=== PATIENT | male | born 1965 | race Asian ===

== ENCOUNTER 2024-06-24 18:47 | Inpatient (IN) | payer OTHER ==
[~2024-06-24] VITALS: Ht 162.6 cm; Wt 78.0 kg
[2024-06-24] MEDS ORDERED: GLIP5TAB15 PO (18:56)
[2024-06-24] MEDS ORDERED: ROSU10TA72 PO (18:56)
[2024-06-24] MEDS ORDERED: SEMA14TA2 PO (18:56)
[2024-06-24] MEDS ORDERED: ERTU15TA PO (18:56)
[2024-06-24] MEDS ORDERED: FENO54TA7 PO (18:56)
[2024-06-24] MEDS ORDERED: ALLO300T2 PO (18:56)
[2024-06-24] MEDS ORDERED: METF-1211 PO (18:56)
[2024-06-24 19:09] LABS: BASOPHILS % (AUTO) 0.7 % (0.0-2.0); EOSINOPHILS % (AUTO) 1.1 % (1.0-6.0); HEMATOCRIT 49.2 % (41-53); HEMOGLOBIN 16.6 g/dL (13.5-17.5); LYMPHOCYTES # (AUTO) 2.9 K/uL (1.0-4.8); LYMPHOCYTES % (AUTO) 30.1 % (22.0-44.0); MEAN CORPUSCULAR HEMOGLOBIN 30.9 pg (26.0-34.0); MEAN CORPUSCULAR HGB CONC 33.8 G/dL (31.0-37.0); MEAN CORPUSCULAR VOLUME 91 fL (80-100); MONOCYTES # (AUTO) 0.7 K/uL (0.1-1.0); MONOCYTES % (AUTO) 7.3 % (2.0-9.0); NEUTROPHILS # (AUTO) 5.8 K/uL (1.8-7.7); NEUTROPHILS % (AUTO) 60.8 % (40.0-70.0); PLATELET COUNT (AUTO) 203 K/uL (150-450); RED BLOOD CELL COUNT(AUTO) 5.38 MIL/uL (4.50-5.90); RED CELL DISTRIBUTION WIDTH 12.8 % (11.5-14.5); WHITE BLOOD COUNT (AUTO) 9.6 K/uL (4.5-11.0)
[2024-06-24 19:15] LABS: CALCIUM, TOTAL 8.7 mg/dL (8.8-10.5); CREATININE 2.01 mg/dL (0.60-1.30); POTASSIUM 4.1 mmol/L (3.5-5.1)
[2024-06-24 19:24] LABS: TROPONIN I-HIGH SENSITIVITY 55 ng/L (<76)
[2024-06-24] MEDS ORDERED: ASPIRIN 81 MG CHEWABLE TABLET PO ONE (22:30)
[2024-06-24] MEDS: ASPIRIN 325 MG TABLET PO ONE (22:38)
[2024-06-24] MEDS: NITROGLYCERIN 2% (1 GM=INCH) OINTMENT PACKET TP ONE (22:38)
[2024-06-24] MEDS: SODIUM CHLORIDE 0.9% 1,000 ML IV ONE (22:38)
[2024-06-24 23:24] LABS: TROPONIN I-HIGH SENSITIVITY 338 ng/L (<76)
[2024-06-24] MEDS ORDERED: ACETAMINOPHEN 325 MG TABLET PO PRN (23:30)
[2024-06-24] MEDS: ATORVASTATIN CALCIUM 40 MG TABLET PO ONE (23:30)
[2024-06-24] MEDS ORDERED: HEPARIN SODIUM,PORCINE 5,000 UNITS/ML VIAL IVP ONE (23:30)
[2024-06-24] MEDS ORDERED: HEPARIN SODIUM,PORCINE 5,000 UNITS/ML VIAL IVP PRN ×2 (23:30)
[2024-06-24] MEDS: CARVEDILOL 3.125 MG TABLET PO SCH (23:30)
[2024-06-24] MEDS ORDERED: ONDANSETRON HCL 4 MG/2 ML VIAL IVP PRN (23:30)
[2024-06-25] VITALS (14 sets, daily range): BP systolic 122–190; BP diastolic 75–103; PULSE 58–92; RESP 17–20; TEMP 97.6–98.2; O2SAT 98–99
[2024-06-25] MEDS ORDERED: HEPARIN SODIUM,PORCINE 5,000 UNITS/ML VIAL SQ SCH
[2024-06-25 00:43] LABS: PROTHROMBIN TIME 9.6 SEC (9.4-11.6)
[2024-06-25] MEDS: HEPARIN SODIUM,PORCINE 5,000 UNITS/ML VIAL IVP ONE (02:45)
[2024-06-25] MEDS: HEPARIN SODIUM 25000 UNITS/D5W 250 ML IV PRN (02:50)
[2024-06-25 05:18] LABS: BASOPHILS % (AUTO) 0.6 % (0.0-2.0); EOSINOPHILS % (AUTO) 1.4 % (1.0-6.0); HEMATOCRIT 42.4 % (41-53); HEMOGLOBIN 14.5 g/dL (13.5-17.5); LYMPHOCYTES # (AUTO) 4.1 K/uL (1.0-4.8); LYMPHOCYTES % (AUTO) 37.7 % (22.0-44.0); MEAN CORPUSCULAR HEMOGLOBIN 30.9 pg (26.0-34.0); MEAN CORPUSCULAR HGB CONC 34.1 G/dL (31.0-37.0); MEAN CORPUSCULAR VOLUME 91 fL (80-100); MONOCYTES # (AUTO) 0.9 K/uL (0.1-1.0); MONOCYTES % (AUTO) 8.4 % (2.0-9.0); NEUTROPHILS # (AUTO) 5.6 K/uL (1.8-7.7); NEUTROPHILS % (AUTO) 51.9 % (40.0-70.0); PLATELET COUNT (AUTO) 187 K/uL (150-450); RED BLOOD CELL COUNT(AUTO) 4.69 MIL/uL (4.50-5.90); RED CELL DISTRIBUTION WIDTH 12.9 % (11.5-14.5); WHITE BLOOD COUNT (AUTO) 10.7 K/uL (4.5-11.0)
[2024-06-25 05:35] LABS: CALCIUM, TOTAL 8.8 mg/dL (8.8-10.5); CREATININE 1.57 mg/dL (0.60-1.30); MAGNESIUM 2.3 mg/dL (1.80-2.40); POTASSIUM 3.9 mmol/L (3.5-5.1)
[2024-06-25 05:44] LABS: TROPONIN I-HIGH SENSITIVITY 468 ng/L (<76)
[2024-06-25] MEDS: ASPIRIN 81 MG CHEWABLE TABLET PO SCH (10:01)
[2024-06-25] MEDS: DOCUSATE SODIUM 100 MG CAPSULE PO SCH (10:01)
[2024-06-25] MEDS: SODIUM CHLORIDE 0.9% 1,000 ML IV ONE (10:41)
[2024-06-25] MEDS ORDERED: NITROGLYCERIN 50 MG/D5% WATER 250 ML ONE (12:39)
[2024-06-25] MEDS ORDERED: SODIUM BICARBONATE 50 MEQ/50 ML VIAL ONE (12:39)
[2024-06-25] MEDS ORDERED: LIDOCAINE/PF 1% 30 ML VIAL ONE (12:39)
[2024-06-25] MEDS ORDERED: IOHEXOL 300 MG/ML 100 ML VIAL ONE (12:39)
[2024-06-25] MEDS ORDERED: VERAPAMIL HCL 2.5 MG/ML 2 ML VIAL ONE (12:39)
[2024-06-25] MEDS ORDERED: HEPARIN SODIUM 1000 UNITS/NS 1,000 ML ONE (12:39)
[2024-06-25] MEDS ORDERED: FentaNYL CITRATE PF 100 MCG/2 ML VIAL ONE (13:14)
[2024-06-25] MEDS ORDERED: MIDAZOLAM HCL 2 MG/2 ML VIAL ONE (13:14)
[2024-06-25] MEDS: VERAPAMIL HCL 2.5 MG/ML 2 ML VIAL IARTER ONE (13:50)
[2024-06-25] MEDS: HEPARIN SODIUM,PORCINE 1,000 UNITS/ML 10 ML VIAL IARTER ONE (13:51)
[2024-06-25] MEDS: IOHEXOL 300 MG/ML 100 ML VIAL ICOR ONE (13:51)
[2024-06-25] MEDS: NITROGLYCERIN/D5W 50 MG/250 ML IV BOTTLE IARTER ONE (13:52)
[2024-06-25] MEDS: MIDAZOLAM HCL 2 MG/2 ML VIAL IVP ONE (13:53)
[2024-06-25] MEDS: FentaNYL CITRATE PF 100 MCG/2 ML VIAL IVP ONE (13:53)
[2024-06-25] MEDS: LIDOCAINE 1% 30 ML/SOD BICARB 8.4% 4 ML SQ ONE (13:54)
[2024-06-25] MEDS: HEPARIN SODIUM 1000 UNITS/NS 1,000 ML IARTER ONE (14:01)
[2024-06-25] MEDS: HEPARIN SODIUM,PORCINE 1,000 UNITS/ML 10 ML VIAL IVP ONE (14:02)
[2024-06-25] MEDS: PRASUGREL HCL 10 MG TABLET PO ONE (14:17)
[2024-06-25] MEDS: NITROGLYCERIN 0.4 MG SUBLINGUAL TABLET #25 SL PRN (16:04)
[2024-06-25] MEDS: HydrALAZINE HCL 20 MG/ML VIAL IVP PRN (18:20)
[2024-06-25] MEDS ORDERED: DEXTROSE 50%-WATER 25 GM/50 ML SYRINGE IVP PRN (18:45)
[2024-06-25] MEDS: ATORVASTATIN CALCIUM 40 MG TABLET PO SCH (21:29)
[2024-06-25] MEDS: INSULIN LISPRO 100 UNITS/ML SQ PRN (21:31)
[2024-06-26] VITALS: BP 127/77; PULSE 70; RESP 17; TEMP 98.1; O2SAT 95
[2024-06-26 04:00] VITALS: BP 127/76; PULSE 75; RESP 17; TEMP 98.2; O2SAT 95
[2024-06-26 06:53] LABS: BASOPHILS % (AUTO) 0.2 % (0.0-2.0); EOSINOPHILS % (AUTO) 1.1 % (1.0-6.0); HEMATOCRIT 43.3 % (41-53); HEMOGLOBIN 14.9 g/dL (13.5-17.5); MEAN CORPUSCULAR HEMOGLOBIN 31.2 pg (26.0-34.0); MEAN CORPUSCULAR HGB CONC 34.4 G/dL (31.0-37.0); MEAN CORPUSCULAR VOLUME 91 fL (80-100); MONOCYTES % (AUTO) 9.9 % (2.0-9.0); NEUTROPHILS # (AUTO) 6.2 K/uL (1.8-7.7); NEUTROPHILS % (AUTO) 59.8 % (40.0-70.0); PLATELET COUNT (AUTO) 183 K/uL (150-450); RED BLOOD CELL COUNT(AUTO) 4.78 MIL/uL (4.50-5.90); RED CELL DISTRIBUTION WIDTH 12.9 % (11.5-14.5); WHITE BLOOD COUNT (AUTO) 10.5 K/uL (4.5-11.0)
[2024-06-26 07:05] LABS: CHOL/HDL RATIO 4.4 (4.2-7.3); CREATININE 1.33 mg/dL (0.60-1.30); POTASSIUM 3.5 mmol/L (3.5-5.1)
[2024-06-26 07:09] VITALS: BP 126/75; PULSE 74; RESP 18; TEMP 98.3; O2SAT 98
[2024-06-26 07:11] LABS: HEMOGLOBIN A1C 6.9 % (3.8-5.6)
[2024-06-26 07:28] LABS: TROPONIN I-HIGH SENSITIVITY 1118 ng/L (<76)
[2024-06-26] MEDS: CARVEDILOL 6.25 MG TABLET PO SCH (08:24)
[2024-06-26] MEDS: LOSARTAN POTASSIUM 25 MG TABLET PO SCH (08:25)
[2024-06-26] MEDS: PRASUGREL HCL 10 MG TABLET PO SCH (08:25)
[2024-06-26 12:08] VITALS: BP 100/68; PULSE 62; RESP 18; TEMP 98; O2SAT 98
[2024-06-26] MEDS ORDERED: CARV6 PO (13:23)
[2024-06-26] MEDS ORDERED: LOSA-381 PO (13:23)
[2024-06-26] MEDS ORDERED: PRAS10TA6 PO (13:23)
[2024-06-26] MEDS ORDERED: ATOR40TA28 PO (13:24)
[2024-06-26] MEDS ORDERED: ASPI81TA87 PO (13:25)
[2024-06-27 09:00] LABS: GLUCOMETER DEV NAME(LOC) 5S.1C; GLUCOSE,POINT OF CARE 193 MG/DL (70-110)
[2024-06-27 09:00] LABS: GLUCOMETER DEV NAME(LOC) 5S.1C; GLUCOSE,POINT OF CARE 165 MG/DL (70-110)
[2024-06-27 09:33] LABS: GLUCOMETER DEV NAME(LOC) 5N.2C; GLUCOSE,POINT OF CARE 156 MG/DL (70-110)
[2024-06-28] MEDS ORDERED: ATOR40TA71 PO (10:13)
== END 2024-06-26 16:15 | disposition home or self-care (01) | DRG 174 ==
LOC: EMS 18:47 → EDH 23:39 → 5S 06-25 08:35
PROVIDERS: ADMIT Internal Medicine; ATTEND Internal Medicine
PROC: 027034Z Dilation of Coronary Artery, One Artery with Drug-eluting Intraluminal Device, Percutaneous Approach (ICD-10-PCS; principal; 2024-06-25)
PROC: 4A023N7 Measurement of Cardiac Sampling and Pressure, Left Heart, Percutaneous Approach (ICD-10-PCS; 2024-06-25)
PROC: B2111ZZ Fluoroscopy of Multiple Coronary Arteries using Low Osmolar Contrast (ICD-10-PCS; 2024-06-25)
DX: I21.4 Non-ST elevation (NSTEMI) myocardial infarction (principal); N17.0 Acute kidney failure with tubular necrosis; E11.00 Type 2 diabetes mellitus with hyperosmolarity without nonketotic hyperglycemic-hyperosmolar coma (NKHHC); E11.22 Type 2 diabetes mellitus with diabetic chronic kidney disease; I12.9 Hypertensive chronic kidney disease with stage 1 through stage 4 chronic kidney disease, or unspecified chronic kidney disease; N18.9 Chronic kidney disease, unspecified; E78.00 Pure hypercholesterolemia, unspecified; R61 Generalized hyperhidrosis; M10.9 Gout, unspecified; E78.1 Pure hyperglyceridemia; F17.210 Nicotine dependence, cigarettes, uncomplicated; Z71.6 Tobacco abuse counseling
CPT/HCPCS: 71045; 80048; 80061; 82570; 82962; 83036; 83735; 83880; 84300; 84484; 85025; 85610; 85730; 93005; 93306; 99285; G0378; J0360; J1644; J2250; J3010; J3490; J7030; Q9967; 36415-L1; 36415-TC; Z7610

== ENCOUNTER 2025-06-26 11:49 | Emergency (ER) | payer OTHER ==
[~2025-06-26] VITALS: Ht 162.6 cm; Wt 76.4 kg
[~2025-06-26 11:49] MED LIST: ASPI81TA87 PO; ATOR40TA71 PO; CARV-165 PO; LOSA-381 PO; METF-1211 PO; PRAS10TA21 PO
[2025-06-26 11:57] VITALS: BP 116/78; PULSE 80; RESP 18; TEMP 97; O2SAT 100
[2025-06-26 12:15] LABS: GLUCOMETER DEV NAME(LOC) ERT.7; GLUCOSE,POINT OF CARE 283 MG/DL (70-110)
[2025-06-26] MEDS ORDERED: ACET-3385 PO (15:20)
[2025-06-26] MEDS ORDERED: NAPR-1197 PO (15:49)
[2025-06-26] MEDS ORDERED: ACET-2247 PO (15:49)
== END 2025-06-26 16:04 | disposition home or self-care (01) ==
LOC: EMS 11:49
DX: M10.9 Gout, unspecified (principal); E11.9 Type 2 diabetes mellitus without complications; E78.00 Pure hypercholesterolemia, unspecified; Z79.02 Long term (current) use of antithrombotics/antiplatelets; Z79.82 Long term (current) use of aspirin; Z79.899 Other long term (current) drug therapy
CPT/HCPCS: 82962; 99282